=== PATIENT | female | born 1960 | race Caucasian/White ===

== ENCOUNTER → 2022-10-04 | Outpatient (CLI) | payer BC ==
[2022-10-04 16:57] LABS: INR 1.5; PROTHROMBIN PROTIME 15.4 SEC (9.7-11.6)
== END | disposition home or self-care (01) ==
LOC: LAB 16:08
PROVIDERS: ATTEND Internal Medicine Interventional Cardiology
DX: I48.0 Paroxysmal atrial fibrillation (principal); R53.83 Other fatigue
CPT/HCPCS: 36415; 84439; 84443; 85610

== ENCOUNTER → 2022-10-21 | Outpatient (CLI) | payer BC ==
[~2022-10-21] MED LIST: LEXISCAN IV ONE
== END | disposition home or self-care (01) ==
LOC: RAD 08:32
PROVIDERS: ATTEND Internal Medicine Interventional Cardiology
DX: I08.8 Other rheumatic multiple valve diseases (principal); R00.2 Palpitations; R07.9 Chest pain, unspecified; R06.02 Shortness of breath; I87.2 Venous insufficiency (chronic) (peripheral); I70.213 Atherosclerosis of native arteries of extremities with intermittent claudication, bilateral legs
CPT/HCPCS: 78452; 93306; 93970; 93925; 93017; A9500

== ENCOUNTER 2022-11-04 08:47 | Day surgery (SDC) | payer BC ==
[2022-11-02 14:22] VITALS: BP 121/72; PULSE 83; RESP 18; TEMP 98.1; O2SAT 96
[2022-11-02 14:53] LABS: +ADD MANUAL DIFF(NO CHRG) NO; BASOPHIL % 0.2 % (0.0-0.2); EOSINOPHIL # 0.1 10^3/uL (0.0-0.2); EOSINOPHIL % 2.3 % (0.0-5.0); HEMATOCRIT(ML) 39.4 % (36.0-46.0); LYMPHOCYTES # 1.07 10^3/uL1 (1.0-4.8); LYMPHOCYTES % 22.4 % (24.0-44.0); MEAN CORP HGB 32.3 pg (26-34); MONOCYTES # 0.5 10^3/uL (0.3-0.8); MONOCYTES % 10.1 % (5.0-12.0); NEUTROPHIL # 3.1 10^3/uL (1.8-7.7); PLATELET COUNT 245 10^3/uL (150-400); RED BLOOD CELL 4.02 10^6/uL (4.00-5.20); RED CELL DISTRIBUTION WIDTH 12.6 % (11.5-14.5); WHITE BLOOD CELL 4.8 10^3/uL (4.5-11.0)
[2022-11-02 15:09] LABS: ALBUMIN(ML) 3.7 g/dL (3.4-5.0); ALBUMIN/GLOBULIN RATIO 1.088; ANION GAP 13.7; CALCIUM 9.2 mg/dL (8.4-10.5); CARBON DIOXIDE 24.5 mmol/L (20.0-32); CREATININE SERUM 0.8 mg/dL (0.59-1.40); EST GFR, NON-AA 72.9 (>/=60); POTASSIUM 4.2 mmol/L (3.6-5.2)
[2022-11-02 15:29] LABS: INR 1.1
[2022-11-04] VITALS (11 sets, daily range): BP systolic 104–134; BP diastolic 7–80; PULSE 71–84; RESP 18; TEMP 97.4–98; O2SAT 97–99
[~2022-11-04] VITALS: Ht 154.9 cm; Wt 73.5 kg
[~2022-11-04 08:47] MED LIST changes: +ESCI10TA93 PO; +GABA100C7 PO; -LEXISCAN IV ONE; +METO25TA4 PO; +NITR0.4T26 SL; +NS 1000ML 1,000 ML ONE; +SUBLIMAZE 100MCG/2ML ONE; +VERSED ONE; +WARF-35 PO; +WARF2.5T73 PO; +XYLOCAINE ONE
[2022-11-04] MEDS ORDERED: NS 1000ML 1,000 ML IV SCH (09:00)
== END 2022-11-04 14:30 | disposition home or self-care (01) ==
LOC: SDC 08:47
PROVIDERS: ATTEND Internal Medicine Interventional Cardiology
DX: I25.10 Atherosclerotic heart disease of native coronary artery without angina pectoris (principal); I70.213 Atherosclerosis of native arteries of extremities with intermittent claudication, bilateral legs; I10 Essential (primary) hypertension; G60.0 Hereditary motor and sensory neuropathy; F41.9 Anxiety disorder, unspecified; F32.A Depression, unspecified; I48.0 Paroxysmal atrial fibrillation; E66.9 Obesity, unspecified; I87.2 Venous insufficiency (chronic) (peripheral); Z79.01 Long term (current) use of anticoagulants; Z98.890 Other specified postprocedural states; Z68.32 Body mass index [BMI] 32.0-32.9, adult
CPT/HCPCS: 80053; 85025; 36415; 85610; 85730; 93005; 93458; 99153; 99152; J7030; J1644; C1894 ×2; C1769 ×2; J2250; J3010; C1760; Q9967

== ENCOUNTER → 2022-11-24 | Outpatient (CLI) | payer BC ==
[~2022-11-24] MED LIST changes: -NS 1000ML 1,000 ML ONE; -SUBLIMAZE 100MCG/2ML ONE; -VERSED ONE; -XYLOCAINE ONE
[2022-11-24 14:17] LABS: INR 2.3; PROTHROMBIN PROTIME 22.9 SEC (9.7-11.6)
== END | disposition home or self-care (01) ==
LOC: LAB 13:42
PROVIDERS: ATTEND Nurse Practitioner Family
DX: I48.0 Paroxysmal atrial fibrillation (principal)
CPT/HCPCS: 36415; 85610

== ENCOUNTER → 2023-06-15 | Outpatient (CLI) | payer BC ==
[~2023-06-15] MED LIST changes: +ALPR0.254 PO; +APIX5TAB PO; +ASPI-1007 PO; +ATOR40TA PO; +NITR1PAT24 TD; +RANO500T6 PO
== END | disposition home or self-care (01) ==
LOC: RAD 09:06
PROVIDERS: ATTEND Specialist
DX: I07.1 Rheumatic tricuspid insufficiency (principal); R07.9 Chest pain, unspecified; R06.02 Shortness of breath; I49.5 Sick sinus syndrome
CPT/HCPCS: 78452; 93306; A9500

== ENCOUNTER 2023-06-28 14:25 | Observation (INO) | payer BC ==
[~2023-06-28] VITALS: Ht 154.9 cm; Wt 79.4 kg
[2023-06-28] VITALS (21 sets, daily range): BP systolic 95–135; BP diastolic 52–75; PULSE 56–77; RESP 14–39; TEMP 97.7–98.1; O2SAT 92–98
[~2023-06-28 14:25] MED LIST changes: -ALPR0.254 PO; -APIX5TAB PO; -ASPI-1007 PO; -ATOR40TA PO; -NITR1PAT24 TD; -RANO500T6 PO
[2023-06-28 14:49] LABS: BASOPHIL % 0.2 % (0.0-0.2); EOSINOPHIL # 0.1 10^3/uL (0.0-0.2); EOSINOPHIL % 1.2 % (0.0-5.0); HEMATOCRIT(ML) 38.3 % (36.0-46.0); HEMOGLOBIN 12.5 g/dL (12.0-15.0); LYMPHOCYTES # 1.18 10^3/uL1 (1.0-4.8); LYMPHOCYTES % 23.5 % (24.0-44.0); MEAN CORP HGB 32.1 pg (26-34); MEAN CORP HGB CONCENTRATION 32.6 g/dL (33-36.5); MEAN CORP VOLUME 98.5 fL (78-100); MONOCYTES # 0.5 10^3/uL (0.3-0.8); MONOCYTES % 9.4 % (5.0-12.0); NEUTROPHIL # 3.3 10^3/uL (1.8-7.7); NEUTROPHILS % 65.7 % (41.0-85.0); PLATELET COUNT 225 10^3/uL (150-400); RED BLOOD CELL 3.89 10^6/uL (4.00-5.20); RED CELL DISTRIBUTION WIDTH 13.1 % (11.5-14.5)
[2023-06-28 14:51] LABS: +ADD MANUAL DIFF(NO CHRG) NO
[2023-06-28 15:16] LABS: INR 1.8; PROTHROMBIN PROTIME 18.6 SEC (9.7-11.6)
[2023-06-28 15:24] LABS: ANION GAP 12.9; CARBON DIOXIDE 23.5 mmol/L (20.0-32); POTASSIUM 3.4 mmol/L (3.6-5.2); SODIUM 140 mmol/L (132-145)
[2023-06-28 15:25] LABS: ALANINE AMINOTRANSFERASE(ML) 18 U/L (12-78); ALBUMIN(ML) 3.2 g/dL (3.4-5.0); ALBUMIN/GLOBULIN RATIO 0.914; ALKALINE PHOSPHATASE 90 U/L (50-136); ASPARTATE AMINO TRANSFERASE 16 U/L (0-35); CALCIUM 9.1 mg/dL (8.4-10.5); CREATINE KINASE 65 U/L (26-192); CREATINE KINASE MB < 0.5 ng/mL (0.5-3.6); CREATININE SERUM 0.98 mg/dL (0.59-1.40); EST GFR, NON-AA 57.7 (>/=60); GLUCOSE 89 mg/dL (74-106); TROPONIN I HIGH SENSITIVITY < 4 ng/L (0-50)
[2023-06-28] MEDS ORDERED: XANAX ONE (15:57)
[2023-06-28] MEDS ORDERED: NITRO-DUR 0.2MG PATCH TD ONE (15:57)
[2023-06-28] MEDS ORDERED: RANEXA PO ONE (15:57)
[2023-06-28] MEDS ORDERED: NITROSTAT SL SCH (16:00)
[2023-06-28] MEDS: XANAX PO STA (16:02)
[2023-06-28] MEDS: RANEXA PO STA (16:02)
[2023-06-28] MEDS: NITRO-DUR 0.2MG PATCH TD STA (16:05)
[2023-06-28] MEDS: VITAMIN K SQ STA (16:17)
[2023-06-28] MEDS: NS 1000ML/KCL 20MEQ 1,000 ML IV SCH (16:17)
[2023-06-28] MEDS: ASPIRIN EC PO STA (16:30)
[2023-06-28] MEDS: LIPITOR PO SCH (21:38)
[2023-06-28] MEDS: XANAX PO SCH (21:38)
[2023-06-28] MEDS: RANEXA PO SCH (21:38)
[2023-06-28] MEDS: NEURONTIN PO SCH (21:38)
[2023-06-28] MEDS: LOPRESSER PO SCH (21:40)
[2023-06-28] MEDS ORDERED: TYLENOL PO ONE (23:14)
[2023-06-28] MEDS: TYLENOL PO PRN (23:15)
[2023-06-29] VITALS (39 sets, daily range): BP systolic 81–134; BP diastolic 40–94; PULSE 49–71; RESP 12–28; TEMP 97.4–97.9; O2SAT 90–97
[2023-06-29 08:15] LABS: INR 1.7; PROTHROMBIN PROTIME 17.1 SEC (9.7-11.6)
[2023-06-29] MEDS: VITAMIN K SQ STA (08:36)
[2023-06-29] MEDS: CeleXA PO SCH (08:37)
[2023-06-29] MEDS: ASPIRIN EC PO SCH (08:40)
[2023-06-29] MEDS: NITRO-DUR 0.2MG PATCH TD SCH (08:40)
[2023-06-29] MEDS ORDERED: NS 1000ML 1,000 ML ONE (09:27)
[2023-06-29] MEDS ORDERED: SUBLIMAZE 100MCG/2ML ONE (09:27)
[2023-06-29] MEDS ORDERED: VERSED ONE (09:28)
[2023-06-29] MEDS ORDERED: HEPARIN ONE (09:28)
[2023-06-29] MEDS ORDERED: XYLOCAINE ONE (09:28)
[2023-06-29] MEDS ORDERED: ATOR40TA PO (10:39)
[2023-06-29] MEDS ORDERED: RANO500T6 PO (10:39)
[2023-06-29] MEDS ORDERED: NITR1PAT24 TD (10:39)
[2023-06-29] MEDS ORDERED: APIX5TAB PO (10:39)
[2023-06-29] MEDS ORDERED: ALPR0.254 PO (10:39)
[2023-06-29] MEDS ORDERED: ASPI-1007 PO (10:39)
[2023-06-29] MEDS ORDERED: LIPITOR PO SCH (21:00)
== END 2023-06-29 12:45 | disposition home or self-care (01) ==
LOC: ER 14:25 → EDBD 14:36 → ICU 15:47 → UNDOADMOB 15:47 → ICU 15:47 → INTOOBSV 15:47 → UNDODISOB 06-29 12:45
PROVIDERS: ADMIT Specialist; ATTEND Specialist
DX: I25.110 Atherosclerotic heart disease of native coronary artery with unstable angina pectoris (principal); I47.10 Supraventricular tachycardia, unspecified; I48.0 Paroxysmal atrial fibrillation; I10 Essential (primary) hypertension; E78.5 Hyperlipidemia, unspecified; Z79.01 Long term (current) use of anticoagulants; Z79.899 Other long term (current) drug therapy; Z79.82 Long term (current) use of aspirin
CPT/HCPCS: 96360; 96361 ×3; 99285; 71045; 80053; 85025; 36415 ×2; 85379; 84484 ×2; 82553; 83880; 82550; 85610 ×2; 85730; 93005 ×2; G0378 ×21; J3430 ×2; A9150 ×2; J7030; J1644 ×2; J2250; J3010; A6258; C1894